=== PATIENT | female | born 1980 | race Two or more races ===

== ENCOUNTER 2024-06-19 08:29 | Emergency (ER) | payer OTHER ==
[~2024-06-19] VITALS: Ht 162.6 cm; Wt 81.2 kg
[2024-06-19] MEDS ORDERED: LEVOTHYROXINE25 MCG PO (08:36)
[2024-06-19] MEDS ORDERED: PREMPRO 0.45-11 EACH PO (08:36)
[2024-06-19] MEDS ORDERED: hydrOXYzine PAMOATE 50 MG CAPSULE PO STA (09:02)
[2024-06-19] MEDS ORDERED: hydrOXYzine PAMOATE 50 MG CAPSULE PO ONE (09:20)
[2024-06-19 09:33] LABS: HEMATOCRIT 42.9 % (36.0-45.00); HEMOGLOBIN 14.4 g/dL (12.0-15.00); MEAN CELL VOLUME 89.7 fL (80.00-100.00); MEAN CORPUSCULAR HEMOGLOBIN 30.1 pg (27.00-32.0); MEAN CORPUSCULAR HGB CONC 33.5 g/dl (32.0-36.0); PLATELET COUNT 301 K/uL (150-450); RED BLOOD COUNT 4.78 M/uL (4.00-6.00); RED CELL DISTRIBUTION WIDTH 13.1 % (11.5-14.5)
[2024-06-19 10:47] LABS: CALCIUM 9.4 mg/dL (8.5-10.1); CREATININE SERUM 0.86 mg/dL (0.55-1.02); GFR 71.35; POTASSIUM 4.54 mEq/L (3.5-5.1)
== END 2024-06-19 11:11 | disposition home or self-care (01) ==
LOC: ER 08:31
PROVIDERS: General Practice
DX: F51.3 Sleepwalking [somnambulism] (principal); E03.8 Other specified hypothyroidism; F41.8 Other specified anxiety disorders

== ENCOUNTER 2024-11-06 20:49 | Emergency (ER) | payer OTHER ==
[~2024-11-06] VITALS: Ht 160 cm; Wt 92.5 kg
[~2024-11-06 20:49] MED LIST: LEVOTHYROXINE25 MCG PO; PREMPRO 0.45-11 EACH PO
[2024-11-06 21:45] VITALS: O2SAT 99
[2024-11-06] MEDS ORDERED: BUPROPION XL450 MG (21:45)
[2024-11-06] MEDS ORDERED: HYDROXYZIN10 MG/5 ML (21:45)
[2024-11-06 22:43] LABS: BASO % 0.5 % (0.1-1.2); EOS # 0.16 (0.04-0.54); EOS % 1.7 % (0.7-7.0); LYMPH # 1.85 (1.18-3.74); LYMPH % 19.6 % (19.3-53.1); MEAN PLATELET VOLUME 10.80 fl (9.4-12.4); MONO # 0.38 (0.24-0.82); MONO % 4.0 % (4.7-12.5); NEUT # 6.99 (1.56-6.13); NEUT % 74.0 % (34.0-71.1); RED CELL DISTRIBUTION WIDTH 12.3 % (11.6-14.4)
[2024-11-06 23:10] LABS: ALT/SGPT 22.0 U/L (12-78); AST/SGOT 10.0 U/L (15-37); BILIRUBIN TOTAL 0.3 mg/dL (0.3-1.2); BUN CREA RATIO 12.0 (7.0-25.0); CREATININE SERUM 1.05 mg/dL (0.55-1.02); GFR 56.67; GLOBULINA 3.7 G/DL (2.4-3.5); GLUCOSE FASTING 105.0 mg/dL (65-100); OSMOLALITY SERUM 280.0 MOSM/KG (275-295)
[2024-11-06] MEDS ORDERED: LISINOPRIL 2.5 MG TABLET PO STA (23:48)
[2024-11-07 02:26] VITALS: BP 136/78
[2024-11-07] MEDS ORDERED: ZESTRIL5 MG PO (02:58)
== END 2024-11-07 03:04 ==
LOC: ER 20:49
PROVIDERS: General Practice
DX: R00.2 Palpitations (principal); I10 Essential (primary) hypertension